=== PATIENT | female | born 1955 | race American Indian/Alaskan Native ===

== ENCOUNTER → 2024-02-19 | Outpatient (CLI) | payer MEDICARE, BC, SELFPAY ==
[2024-02-19 09:13] LABS: Misc Send Out* See Sep Rpt
== END | disposition home or self-care (01) ==
PROVIDERS: PCP Specialist; Referring Provider Internal Medicine Hematology & Oncology; Visit Provider Internal Medicine Hematology & Oncology
DX: C50.911 Malignant neoplasm of unspecified site of right female breast (principal)

== ENCOUNTER → 2024-05-12 | Outpatient (CLI) | payer MEDICARE, BC, SELFPAY ==
--- NOTE | 2024-05-12 13:50 | XR_ITS ---
Examination: Bone densitometry Date and time of exam:May 12, 2024 1406 hours INDICATIONS: Menopause age 55 breast carcinoma diagnosis vitamin D 2 months Technique: Lumbar spine and hip total bone mineralization values of an calculated. Peak reference and age match control results have been displayed. Findings: Lumbar spine total bone mineralization is1.100 gm/cm2. This is 0.5 standard deviations above peak reference. This is 2.5 standard deviations above age-matched controls. Hip total bone mineralization is 1.061 gm/cm2 This is 0.7 standard deviations above peak reference. This is 2.1 standard deviations above age-matched controls Impression: There is normal mineralization based on lumbar spine measurements. There is osteopenia based on hip measurements
== END | disposition home or self-care (01) ==
LOC: CDIM 13:39
PROVIDERS: Referring Provider Internal Medicine Hematology & Oncology; Visit Provider Internal Medicine Hematology & Oncology
DX: M85.80 Other specified disorders of bone density and structure, unspecified site (principal); C50.911 Malignant neoplasm of unspecified site of right female breast; C50.411 Malignant neoplasm of upper-outer quadrant of right female breast
CPT/HCPCS: 77080

== ENCOUNTER 2024-05-19 12:49 | Outpatient (RCR) | payer MEDICARE, BC, SELFPAY ==
--- NOTE | 2024-05-19 14:55 | CTCFLWUP_ITS ---
Patient: HERMAN DEGROOT : 1955 Page 2 of 2 FOLLOW UP NOTE DATE OF SERVICE: 05/19/2024 NAME: HERMAN DEGROOT ACCOUNT: [id number] : 1955 AGE: 68 DIAGNOSIS: Mammographically detected 2 cm, ER positive, AR positive, HER2/salma negative moderately dif ferentiated infiltrating ductal carcinoma of right breast, status post stereotactic core biopsy (01/22) And a lumpectomy REASON FOR TODAY?S VISIT: Patient is 68-year-old woman with a newly diagnosed breast cancer. Patient underwent lumpectomy. She had 1 lymph node removed and it was negative. Patient had her Oncotype D X done and is low at 7. She is healing well from the surgery and here to establish care for further therapy. REASON FOR TODAY?S VISIT: Patient is here for follow-up on bone density. She is taking her calcium a nd vitamin D. She is also taking her hormone blocking medicine and do not have any complaints. HISTORY OF PRESENT ILLNESS: Herman Degroot is a 68-year-old ENG speaking female with f [facility] oncology history. 09/18/2023: Ms. Degroot had bilateral screening mammogram 10/16/2023: Ms. Degroot had right breast ultrasound 01/07/2024: Right breast diagnostic mammogram 01/23/2024: Ms. Degroot had stereotactic right breast biopsy Genetic testing done on 02/19/2024 negative Oncotype DX score reoccurrence risk score 7, distant recurrence risk at 9 years with AI alone 3% and average absolute chemotherapy benefit less than 1% PAST MEDICAL HISTORY: Infiltrating ductal carcinoma right breast- dx 01/23/24 Insomnia PAST SURGICAL HISTORY: Cholecystectomy - 1999 Tubal ligation - 1983 MEDICATIONS: 1. anastrozole - 1 mg 1 tab Daily 2. Tylenol PM - 25-500 mg 2 tab Every day before sleep 3. Vitamin D - 5,000 unit 1 tab Daily Medications Last Reconciled by Zhane Butler MA on 05/19/2024 ALLERGIES: No Known Drug Allergies REVIEW OF SYSTEMS: Neurological: No headache, seizures or blurring of vision. Gastrointestinal: No nausea, vomiting, diarrhea or constipation. Cardiovascular: No palpitations or angina pains. Respiratory: No cough, chest pain or shortness of breath. PHYSICAL EXAMINATION: VITAL SIGNS: Temperature?99, B/P?158/88, Oxygen?Saturation?96% Weight?206?lbs PAIN: 0 - No pain ECOG Performance Status: 0 - Asymptomatic and fully active EYE: Conjunctivae is white MOUTH: Oral cavity is moist CHEST: Clear to auscultation. No wheezes or rales audible. Breast examination showed well-healing surgical scar. Breast is warmer to touch. No deep palpation done as patient is tender left breast and bilateral axilla without any lymphadenopathy CARDIAC: Rhythm regular, no murmurs or gallops present. ABDOMEN: Soft. No hepatomegaly. No splenomegaly. EXTREMITIES: No pedal edema or cyanosis. ASSESSMENT: 1. Mammographically detected 2 cm, ER positive, AR positive, HER2/salma negative moderately differentia reilly infiltrating ductal carcinoma of right breast, status post stereotactic core biopsy (01/23/2024) a nd lumpectomy 2. Patient has been on antiendocrine therapy with anastrozole 1 mg tablet daily for 7 years calcium a nd vitamin D3 daily. Patient's bone density shows osteopenia. 3. Obesity PLAN: 1. Will start on Zometa. Continue anastrozole calcium and vitamin D3 2. Routine mammogram. 3. CBC CMP and RTC in 6 months Electronically Signed by: Dinesh Rhodes MD T: 2:52 PM CC: PCP: Referring: Dinesh Rhodes This document was completed utilizing speech recognition software. Grammatical errors, random word in sertions, pronoun errors, and incomplete sentences are an occasional consequence of this system due t o software limitations, ambient noise, and hardware issues. Any formal questions or concerns about th e content, text or information contained within the body of this dictation should be directly address ed to the provider for clarification.
== END 2024-06-10 23:59 | disposition home or self-care (01) ==
LOC: SCTC 12:49
PROVIDERS: PCP Specialist; Referring Provider Internal Medicine Hematology & Oncology; Visit Provider Internal Medicine Hematology & Oncology
DX: C50.411 Malignant neoplasm of upper-outer quadrant of right female breast (principal); Z17.0 Estrogen receptor positive status [ER+]; Z17.21 Progesterone receptor positive status; Z17.32 Human epidermal growth factor receptor 2 negative status; Z79.811 Long term (current) use of aromatase inhibitors; E66.9 Obesity, unspecified; Z68.41 Body mass index [BMI] 40.0-44.9, adult
CPT/HCPCS: 99212; G0463

== ENCOUNTER → 2024-12-24 | Outpatient (CLI) | payer MEDICARE, BC, SELFPAY ==
[2024-12-24 17:49] LABS: Basophils # (Auto) 0.1 Thou/mm3 (0.0-0.2); Basophils % (Auto) 1 % (0-2.5); Eosinophils # (Auto) 0.2 Thou/mm3 (0.0-0.5); Eosinophils % (Auto) 2 % (0-10); Hematocrit 41.1 % (36.0-46.0); Hemoglobin 13.6 g/dL (12.0-16.0); Immature Granulocytes Auto 0.04 Thou/mm3 (0.00-0.00); Lymphocytes # (Auto) 2.6 Thou/mm3 (1.0-4.8); Lymphocytes % (Auto) 27 % (10-50); Mean Corpuscular HGB Conc 33.1 g/dl (31.0-37.0); Mean Corpuscular Hemoglobin 29.1 pg (25.0-35.0); Mean Corpuscular Volume 88 fL (80-100); Monocytes # (Auto) 0.7 Thou/mm3 (0.0-0.8); Monocytes % (Auto) 7 % (0-12); Neutrophils # (Auto) 6.0 Thou/mm3 (1.8-7.7); Neutrophils % (Auto) 63 % (37-80); Nucleated Red Blood Cell # 0.00 Thou/mm3 (0.00-0.00); Nucleated Red Blood Cell % 0 /100 WBC (0); Platelet Count 257 Thou/mm3 (140-440); RDW Standard Deviation 42.9 fL (36.4-46.3); Red Blood Count 4.68 Miln/mm3 (4.00-5.20); White Blood Count 9.5 Thou/mm3 (3.6-11.0)
[2024-12-24 18:07] LABS: Alanine Aminotransferase 39 U/L (10-49); Albumin, Serum 4.7 gm/dL (3.4-4.8); Albumin/Globulin Ratio 1.9 (1.2-2.2); Alkaline Phosphatase 131 U/L (46-116); Anion Gap 10 (7-16); Aspartate Amino Transferase 35 U/L (0-34); BUN/Creatinine Ratio 13 Ratio (12-20); Bilirubin,Total 0.8 mg/dL (0.3-1.2); Blood Urea Nitrogen 13 mg/dL (9-23); Calcium 10.0 mg/dL (8.3-10.6); Calcium (Corrected) 10.0 mg/dL (8.5-10.1); Carbon Dioxide 27.1 mMol/L (20.0-31.0); Chloride 106 mMol/L (98-107); Creatinine (Component) 1.0 mg/dL (0.6-1.3); Globulin 2.5 gm/dL (2.3-3.5); Glucose 95 mg/dL (74-106); Osmolality,Calculated 285 (275-295); Potassium 4.1 mMol/L (3.4-5.1); Sodium 143 mMol/L (136-145); Total Protein 7.2 gm/dL (5.7-8.2); eGFR > 60 See Note
[2024-12-24 20:22] LABS: CA 15-3 8.8 U/mL (<32.4)
== END | disposition home or self-care (01) ==
LOC: SCTO 16:06
PROVIDERS: PCP Specialist; Referring Provider Internal Medicine Hematology & Oncology; Visit Provider Internal Medicine Hematology & Oncology
DX: C50.911 Malignant neoplasm of unspecified site of right female breast (principal); C50.411 Malignant neoplasm of upper-outer quadrant of right female breast; M85.851 Other specified disorders of bone density and structure, right thigh
CPT/HCPCS: 36415; 80053; 85025; 86300

== ENCOUNTER → 2024-12-31 | Outpatient (CLI) | payer MEDICARE, BC, SELFPAY ==
[2024-12-31 16:52] LABS: Misc Send Out* See Sep Rpt
== END | disposition home or self-care (01) ==
PROVIDERS: PCP Specialist; Referring Provider Specialist; Visit Provider Specialist
DX: R74.8 Abnormal levels of other serum enzymes (principal)
CPT/HCPCS: 84075; 84080

== ENCOUNTER 2025-01-07 12:55 | Outpatient (RCR) | payer MEDICARE, BC, SELFPAY ==
--- NOTE | 2025-01-05 06:01 | CTCFLWUP_ITS ---
Patient: HERMAN MENENDEZ : 1955 Page 3 of 6 FOLLOW UP NOTE DATE OF SERVICE: 12/31/2024 NAME: HERMAN MENENDEZ ACCOUNT: [id number] : 1955 AGE: 69 INTERVAL HISTORY: Herman, a breast cancer survivor post-lumpectomy, presented for follow-up regarding osteopenia, insomnia, and weight management. Her medical history includes osteopenia and suspected sleep apnea. She reported anxiety-related sleep difficulties with Tylenol no longer effective. She takes letrozole, calci um, and vitamin D daily, and obtained dental clearance for bone-strengthening medication. Trazodone 50mg was prescribed for sleep. Weight management options were discussed, including Rybelsus as an oral alternative to previously discontinued Ozempic. Nutritional strategies and stress reduction techniques were recommended. ONCOLOGY HISTORY: DIAGNOSIS: Mammographically detected 2 cm, ER positive, NE positive, HER2/salma negative moderately differentiated infiltrating ductal carcinoma of right breast, status post stereotactic core biopsy (01/23/2024) And a lumpectomy REASON FOR TODAY?S VISIT: Patient is 69-year-old woman with a newly diagnosed breast cancer. Patient underwent lumpectomy. She had 1 lymph node removed and it was negative. Patient had her Oncotype DX done and is low at 7. She is healing well from the surgery and here to establish care for further therapy. REASON FOR TODAY?S VISIT: Patient is here for follow-up on bone density. She is taking her calcium and vitamin D. She is also taking her hormone blocking medicine and do not have any complaints. Other specified disorders of bone density and structure, right thigh [ICD10] M85.851 DATE OF DIAGNOSIS: STAGE/TNM: TREATMENT HISTORY: Care?Plan Start?Date Cycle Day Intent Zoledronic?Acid?4?mg?adjuvant 05/19/2024 1 180 Palliative HISTORY OF PRESENT ILLNESS: Herman Menendez is a 69-year-old ENG speaking female with following oncology history. 09/18/2023: Ms. Menendez had bilateral screening mammogram 10/16/2023: Ms. Menendez had right breast ultrasound 01/07/2024: Right breast diagnostic mammogram 01/23/2024: Ms. 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 Tobacco?Use:?Denies ETOH?Use:?Denies Drug?Note:?Denies Social?History?Note:?Lives?with? QUALITY ASSURANCE COORDINATOR HISTORY: Menarche?-?Age:?13 Menopause:?age?55 Hormone?Use:? control medication x 5 yrs :?2 Live?Births:?2 Age?1st?:?26 Vaginal?Bleeding:?0-None MEDICATIONS: 1. anastrozole - 1 mg 1 tab Daily 2. Arimidex - 1 mg 90 tab Daily 3. traZODone - 50 mg 1 tab Daily 4. Tylenol PM - 25-500 mg 2 tab Every day before sleep 5. Vitamin D - 5,000 unit 1 tab Daily Medications Last Reconciled by Zhane Butler MA on 12/31/2024 ALLERGIES: No Known Drug Allergies REVIEW OF SYSTEMS: A complete 14-point review of systems was performed and is negative except as noted in interval history. PHYSICAL EXAMINATION: VITAL SIGNS: Temperature?99.3, B/P?171/102, Oxygen?Saturation?98% Weight?205?lbs PAIN: 0 - No pain ECOG Performance Status: 0 - Asymptomatic and fully active EYE: Conjunctivae is white MOUTH: Oral cavity is moist CHEST: Clear to auscultation. No wheezes or rales audible. Breast examination showed well-healing surgical scar. Breast is warmer to touch. No deep palpation done as patient is tender left breast and bilateral axilla without any lymphadenopathy CARDIAC: Rhythm regular, no murmurs or gallops present. ABDOMEN: Soft. No hepatomegaly. No splenomegaly. EXTREMITIES: No pedal edema or cyanosis. LABORATORY DATA: I have personally reviewed and interpreted each of the patient?s relevant lab tests, abnormal findings are below: Date 12/24/24 ??WHITE?BLOOD?COUNT?(Thou/mm3) 9.5 ??RED?BLOOD?COUNT?(Miln/mm3) 4.68 ??HEMOGLOBIN?(gm/dl) 13.6 ??HEMATOCRIT?(%) 41.1 ??PLATELET?COUNT?(Thou/mm3) 257 ??NEUTROPHILS?%,?AUTO?(%) 63 ??LYMPH?%,?AUTO?(%) 27 ??NEUTROPHILS,?AUTO?(Thou/mm3) 6.0 ??GLUCOSE,RANDOM?(mg/dL) 95 ??BLOOD?UREA?NITROGEN?(mg/dL) 13 ??CREATININE?(mg/dL) 1.00 ??SODIUM?(mmol/L) 143 ??POTASSIUM?(mmol/L) 4.1 ??CHLORIDE?(mmol/L) 106 ??CrCl?(CandG)?(ml/min) 55.97 ??AST/SGOT?(Unit/L) 35?H ??ALT/SGPT?(Unit/L) 39 ??ALKALINE?PHOSPHATASE?(Unit/L) 131?H ??BILIRUBIN,?TOTAL?(mg/dL) 0.8 ??PROTEIN?TOTAL?(gm/dl) 7.2 ??ALBUMIN,?SERUM?(gm/dl) 4.7 ??GLOBULIN?(gm/dl) 2.5 ??ALBUMIN/GLOBULIN?RATIO 1.9 ??CALCIUM,?SERUM?(mg/dL) 10.0 ??CALCIUM?SERUM?(CORRECTED)?(mg/dL) 10.0 ASSESSMENT/PLAN: 1. Mammographically detected 2 cm, ER positive, NE positive, HER2/salma negative moderately differentiated infiltrating ductal carcinoma of right breast, status post stereotactic core biopsy (01/23/2024) and lumpectomy 2. Patient has been on antiendocrine therapy with anastrozole 1 mg tablet daily for 7 years calcium and vitamin D3 daily. Patient's bone density shows osteopenia. 3. Obesity Herman, a patient with a history of lumpectomy and osteopenia, presents for follow-up, discussing bone health, sleep issues, and weight management. Osteopenia Assessment: Patient has a history of osteopenia and is currently taking calcium and vitamin D supplements. Dental clearance has been obtained for bone- strengthening medication. The patient is compliant with vitamin D supplementation. Plan: - Order bone-strengthening medication (frequency options: annually or every 6 months) - Continue calcium and vitamin D supplements Insomnia Assessment: Patient reports difficulty sleeping, possibly due to anxiety. Current use of Tylenol for sleep aid is ineffective. No history of sleep study. Possible underlying sleep apnea, which could affect heart and brain health. Plan: - Prescribe trazodone 50 mg PO qhs for sleep - Educated patient on consistent nightly use for optimal results - Discussed importance of addressing potential sleep apnea, but patient declined sleep study at this time Breast Cancer Status Post Lumpectomy Assessment: Patient with history of breast cancer, status post lumpectomy. Currently on letrozole for hormonal therapy. Plan: - Continue letrozole (dose not specified) - Refill daily tablet (specific medication not mentioned) Obesity Assessment: Patient expresses interest in weight management but is hesitant about injectable medications. Previous trial of Ozempic resulted in weight regain upon discontinuation and skin issues. Plan: - Discussed oral alternative to Ozempic (Rybelsus), but efficacy uncertain - Recommended stress reduction techniques - Suggested nutritional strategies: daily smoothies with celery, spinach, and eagle for improved nutrition and weight management ORDERS: Order # Description [id number] Infusion 1 Hour [id number] Infusion 1 Hour [id number] Infusion 1 Hour [id number] Infusion 1 Hour RETURN TO CLINIC: I reviewed the diagnosis, prognosis, and recommended treatment/procedure options with the patient (and/or their legal procurement representative), including the potential benefits, risks, side effects and alternative therapies. We also discussed the option of no treatment and the possibility of clinical trial participation, if applicable. All questions were addressed, and they demonstrated understanding. They provided informed consent to proceed with the proposed plan of care. BILLING AND COMPLIANCE: I reviewed external records from providers outside my specialty as summarized above. I spent a total of 50 minutes on this patient?s care on the day of their visit excluding time spent related to any billed procedures. This time includes time spent with the patient as well as time spent documenting in the medical record, reviewing patients records and tests, obtaining history, placing orders, communicating with other healthcare professionals, counseling the patient, family or caregiver, and/or care coordination for the diagnoses above. Electronically Signed by: Dinesh Rhodes MD T: 5:59 AM CC: PCP: Referring: Hennessy, Brennen This document was completed utilizing speech recognition software. Grammatical errors, random word insertions, pronoun errors, and incomplete sentences are an occasional consequence of this system due to software limitations, ambient noise, and hardware issues. Any formal questions or concerns about the content, text or information contained within the body of this dictation should be directly addressed to the provider for clarification.
== END 2025-01-08 23:59 | disposition home or self-care (01) ==
LOC: SCTC 12:55
PROVIDERS: PCP Specialist; Referring Provider Specialist; Visit Provider Internal Medicine Hematology & Oncology
DX: C50.911 Malignant neoplasm of unspecified site of right female breast (principal); C50.411 Malignant neoplasm of upper-outer quadrant of right female breast; Z17.0 Estrogen receptor positive status [ER+]; Z17.21 Progesterone receptor positive status; Z17.32 Human epidermal growth factor receptor 2 negative status; Z90.11 Acquired absence of right breast and nipple; Z79.811 Long term (current) use of aromatase inhibitors; E66.9 Obesity, unspecified; Z68.41 Body mass index [BMI] 40.0-44.9, adult; M85.80 Other specified disorders of bone density and structure, unspecified site
CPT/HCPCS: 84075; 84080; 96365; 99212; J3489; J7040; G0463

== ENCOUNTER → 2025-04-01 | Outpatient (CLI) | payer MEDICARE, BC, SELFPAY ==
[2025-04-01 18:05] LABS: Glucose Estimated Average 120 mg/dL (80-131); Hemoglobin A1C 5.8 % Hgb (4.8-6.0)
[2025-04-01 18:09] LABS: Cardiac Risk Estimate 5.3 RATIO (3.7-5.6); Cholesterol 201 mg/dL (132-200); HDL Cholesterol 38 mg/dL (40-60); LDL Cholesterol,Calculated 133 mg/dL (0-130); Thyroid Stimulating Hormone 1.86 uIU/mL (0.55-4.78); Triglycerides 148 mg/dL (30-150)
== END | disposition home or self-care (01) ==
PROVIDERS: PCP Specialist; Referring Provider Specialist; Visit Provider Specialist
DX: R73.01 Impaired fasting glucose (principal); I10 Essential (primary) hypertension; Z86.39 Personal history of other endocrine, nutritional and metabolic disease
CPT/HCPCS: 36415; 80061; 83036; 84443